=== PATIENT | female | born 2000 | race Hispanic/Latino ===

== ENCOUNTER 2024-03-10 09:57 | Emergency (ER) | payer SELFPAY ==
[2024-03-10] MEDS ORDERED: Ibuprofen 200 MG TAB ONE (10:21)
== END 2024-03-10 10:28 | disposition home or self-care (01) ==
LOC: CSHERS 09:57
DX: H92.01 Otalgia, right ear (principal); F17.210 Nicotine dependence, cigarettes, uncomplicated
CPT/HCPCS: 99282